=== PATIENT | male | born 1955 | race Caucasian/White ===

== ENCOUNTER → 2018-04-04 | Outpatient (CLI) | payer OTHER ==
--- NOTE | 2018-04-04 13:30 | US ---
EXAM DESCRIPTION: Renal: Ultrasound. CLINICAL HISTORY: CHRONIC KIDNEY DISEASE COMPARISON: Bilateral renal arterial Doppler evaluation on the same visit. TECHNIQUE: Transcutaneous scanning: Two-dimensional and Doppler modes. FINDINGS: Right kidney measures 8.4 x 4.7 x 4.2 cm; mid-renal cortical thickness 11 mm. . Cortical echogenicity equal to that of the liver. No hydronephrosis No echogenic stones. Minimally lobulated contour of the kidney with no perinephric fluid. Normal vascularity. Proximal ureter not visualized. Left kidney measures 9.9 x 5.0 x 4.8 cm; mid-renal cortical thickness 10 mm.. Cortical echogenicity equal to that of the liver. No hydronephrosis. 3.6 mm echogenic stone with acoustic shadowing. Minimally lobulated contour of the kidney with no perinephric fluid. Normal vascularity.. Proximal ureter not visualized. Urinary bladder not visualized. Abdominal aorta diameter not measured.. IMPRESSION: Bilateral kidneys are small with significantly thinned cortex and increased cortical echogenicity, lobulation of the renal capsules, suggestive of advanced chronic kidney disease. Less than 4 mm stone in the left kidney but no hydronephrosis. Electronically signed by: Hu Washington MD 04/04/2018 1:29 PM CDT
== END ==
LOC: US 07:57
PROVIDERS: ATTEND Internal Medicine Nephrology
DX: N18.4 Chronic kidney disease, stage 4 (severe) (principal); N20.0 Calculus of kidney